=== PATIENT | male | born 1995 | race Caucasian/White ===

== ENCOUNTER 2019-06-03 08:00 | Outpatient (CLI) | payer OTHER ==
[2019-06-03 20:58] LABS: TRICHOMONAS VAGINALIS DNA NEGATIVE (NEGATIVE)
[2019-06-04 14:30] LABS: HIV AG/AB 4TH GEN NON-REACTIVE (NON-REACTIVE)
== END 2019-06-03 23:59 | disposition home or self-care (01) ==
LOC: LAB.WCP 08:00
PROVIDERS: ATTEND Family Medicine
DX: Z00.00 Encounter for general adult medical examination without abnormal findings (principal); Z11.3 Encounter for screening for infections with a predominantly sexual mode of transmission
CPT/HCPCS: 36415; 81599; 84443; 86592; 87389; 87491; 87591; 87661